=== PATIENT | female | born 1970 | race Caucasian/White ===

== ENCOUNTER 2024-11-06 09:17 | Outpatient (CLI) | payer OTHER, SELFPAY | END 2024-11-06 09:18 | disposition home or self-care (01) | PROVIDERS: Visit Provider Nurse Practitioner Family | DX: N30.90 Cystitis, unspecified without hematuria (principal); B96.1 Klebsiella pneumoniae [K. pneumoniae] as the cause of diseases classified elsewhere | CPT/HCPCS: 87086 ==